=== PATIENT | male | born 1975 | race Caucasian/White ===

== ENCOUNTER 2020-02-15 23:14 | Emergency (ER) | payer OTHER, MEDICAID ==
[~2020-02-15] VITALS: Ht 182.9 cm; Wt 79.4 kg
[2020-02-15 23:49] VITALS: Ht 182.9 cm; Wt 79.4 kg
[2020-02-16 00:56] LABS: BASOPHIL % 0.3 % (0.2-1.5); PLATELET COUNT 333 x10^3mcL (152-348); RED CELL DISTRIBUTION WIDTH 13.1 % (12.1-16.2)
[2020-02-16 01:12] LABS: CALCIUM 9.6 mg/dL (8.5-10.1); CARBON DIOXIDE 30.2 mmol/L (21-32); CHLORIDE SERUM 101 mmol/L (98-107); CREATININE SERUM 1.1 mg/dL (0.7-1.3); GFR1 > 60 mL/min; GLUCOSE SERUM 121 mg/dL (74-106); POTASSIUM SERUM 3.8 mmol/L (3.5-5.1); SODIUM SERUM 137 mmol/L (136-145)
[2020-02-16 01:16] LABS: ALBUMIN 4.1 g/dL (3.4-5.0); ALKALINE PHOSPHATASE 100 U/L (46-116); ALT/SGPT 73 U/L (16-63); AST/SGOT 62 U/L (15-37); BILIRUBIN TOTAL 1.4 mg/dL (0.20-1.00)
[2020-02-16 07:30] VITALS: BP 116/83
== END 2020-02-16 07:00 | disposition short-term general hospital (02) ==
LOC: ED 23:14
PROVIDERS: Emergency Medicine
DX: S42.102A Fracture of unspecified part of scapula, left shoulder, initial encounter for closed fracture (principal); S22.41XA Multiple fractures of ribs, right side, initial encounter for closed fracture; S27.329A Contusion of lung, unspecified, initial encounter; J94.2 Hemothorax; V89.2XXA Person injured in unspecified motor-vehicle accident, traffic, initial encounter; Y93.89 Activity, other specified; Y92.89 Other specified places as the place of occurrence of the external cause; Y99.8 Other external cause status
CPT/HCPCS: G0480; J1885; J3010; Q9967